=== PATIENT | female | born 1960 | race Caucasian/White ===

== ENCOUNTER 2021-06-24 21:26 | Emergency (ER) | payer BC, OTHER ==
[~2021-06-24] VITALS: Ht 160 cm; Wt 54.4 kg
--- NOTE | 2021-06-24 22:00 | NUR ---
PATIENT BIBS C/O SUDDEN SEVERE RIGHT FLANK PAIN X FEW HOURS. PATIENT ALERT AND ORIETNED X3. AMBULATORY BUT WAS BROUGHT IN BY WHEELCHAIR. PATIENT HAS NAUSEA AND VOMITTING. PATIENT HAS NON LABORED BREATHING, AND WAS PLACED ON BED 04 ON A MONITOR AND POX.
[2021-06-24] MEDS ORDERED: ONDANSETRON HCL/PF 4 MG/2 ML VIAL ONE ×3 (22:06→22:42)
[2021-06-24] MEDS ORDERED: KETOROLAC TROMETHAMINE INJ 30 MG/ML VIAL ONE (22:06)
[2021-06-24] MEDS ORDERED: HYDROMORPHONE 1 MG/1 ML DISP.SYRIN ONE (22:07)
[2021-06-24] MEDS ORDERED: KETOROLAC TROMETHAMINE INJ 30 MG/ML VIAL IV ONE (22:30)
[2021-06-24] MEDS ORDERED: ONDANSETRON HCL/PF 4 MG/2 ML VIAL IVP ONE (22:30)
[2021-06-24] MEDS ORDERED: IV NS 0.9% 1,000 ML BAG IV ONE (22:30)
[2021-06-24] MEDS ORDERED: HYDROMORPHONE INJ 2 MG/ML DISP.SYRIN IV ONE (22:30)
--- NOTE | 2021-06-24 22:34 | NUR ---
URINE SENT TO LAB
--- NOTE | 2021-06-24 22:34 | NUR ---
LAB AT BEDSIDE
[2021-06-24 22:50] LABS: BASOPHILS % (AUTO) 0.2 % (0.0-2.0); EOSINOPHILS % (AUTO) 0.4 % (0.0-6.0); HEMATOCRIT 42 % (33-45); HEMOGLOBIN 13.9 g/dL (11.5-14.8); LYMPHOCYTES # (AUTO) 2.1 K/uL (0.8-4.8); LYMPHOCYTES % (AUTO) 15.7 % (20.0-44.0); MEAN CORPUSCULAR HGB CONC 34 g/dl (31.0-36.0); MEAN CORPUSCULAR VOLUME 91 fL (82-100); MONOCYTES # (AUTO) 0.7 K/uL (0.1-1.30); MONOCYTES % (AUTO) 5.1 % (2.0-12.0); NEUTROPHILS # (AUTO) 10.6 K/uL (1.8-8.9); NEUTROPHILS % (AUTO) 78.6 % (43.0-81.0); PLATELET COUNT (AUTO) 227 K/uL (150-450); RED BLOOD CELL COUNT(AUTO) 4.55 MIL/uL (4.0-5.2); WHITE BLOOD COUNT (AUTO) 13.4 K/uL (4.3-11.0)
--- NOTE | 2021-06-24 22:51 | NUR ---
TATI TO RADIOLOGY
[2021-06-24 22:59] LABS: CALCIUM, SERUM 8.7 mg/dL (8.5-10.1); POTASSIUM 3.8 mmol/L (3.5-5.1)
[2021-06-24] MEDS ORDERED: ONDANSETRON HCL/PF - ER 4 MG/2 ML VIAL IV ONE (23:00)
[2021-06-24] MEDS ORDERED: MORPHINE SULFATE INJ 2 MG/ML DISP.SYRIN IV ONE (23:00)
[2021-06-24 23:13] LABS: BILIRUBIN,DIRECT 0.2 mg/dL (0.0-0.2); BILIRUBIN,TOTAL 0.5 mg/dL (0.2-1.0)
--- NOTE | 2021-06-24 23:17 | NUR ---
VERBAL ORDER 10MG REGLAN
[2021-06-24] MEDS ORDERED: MORPHINE SULFATE INJ 4 MG/ML DISP.SYRIN ONE (23:18)
[2021-06-24] MEDS ORDERED: METOCLOPRAMIDE HCL 10 MG/2 ML VIAL ONE (23:18)
--- NOTE | 2021-06-25 00:06 | NUR ---
called tamir to have images read
[2021-06-25] MEDS ORDERED: HYDROMORPHONE INJ 2 MG/ML DISP.SYRIN ONE (00:11)
[2021-06-25] MEDS ORDERED: KETOROLAC TROMETHAMINE INJ 30 MG/ML VIAL ONE (00:11)
[2021-06-25] MEDS ORDERED: ONDANSETRON HCL/PF 4 MG/2 ML VIAL ONE (00:21)
[2021-06-25] MEDS ORDERED: HYDROMORPHONE INJ 2 MG/ML DISP.SYRIN IV ONE (00:30)
[2021-06-25] MEDS ORDERED: ONDANSETRON HCL/PF - ER 4 MG/2 ML VIAL IV ONE (00:30)
[2021-06-25] MEDS ORDERED: KETOROLAC TROMETHAMINE INJ 30 MG/ML VIAL IV ONE (00:30)
[2021-06-25 00:39] LABS: BILIRUBIN,URINE Negative (NEGATIVE); COLOR,URINE YELLOW (YELLOW); LEUKOCYTE ESTERASE ,URINE Negative (NEGATIVE); NITRITE, URINE Negative (NEGATIVE); PH,URINE 8.5 (5.0-8.0); PROTEIN,URINE Negative (NEGATIVE); UGLUCOSE Negative (NEGATIVE); UROBILINOGEN,URINE 0.2 EU/dL (0.2)
--- NOTE | 2021-06-25 00:53 | NUR ---
CALLED [facility] TO HAVE IMAGES READ. PER PAPO, "VERY BUSY"
--- NOTE | 2021-06-25 01:19 | NUR ---
PT SLEEPING COMFORTABLY. ATTACHED TO MONITOR AND POX.
[2021-06-25 01:24] LABS: BACTERIA,URINE None seen /HPF (None Seen); MUCUS,URINE Few /LPF (None Seen); SQUAMOUS EPITHELIAL CELL,UR Few /HPF (None Seen); URINE AMORPHOUS PHOSPHATES Moderate /HPF (None Seen); WBC,URINE 0-2 /HPF (0-3)
[2021-06-25] MEDS ORDERED: HYDROCODONE/APAP 10/325MG TABLET PO ONE (01:30)
[2021-06-25] MEDS ORDERED: KETO10TA2 PO (01:31)
[2021-06-25] MEDS ORDERED: TAMS-12 PO (01:31)
[2021-06-25] MEDS ORDERED: HYDR-3980 PO (01:31)
[2021-06-25] MEDS ORDERED: HYDROCODONE/APAP 10/325MG TABLET ONE (01:38)
[2021-06-25] MEDS ORDERED: ONDA4TAB5 PO (01:41)
--- NOTE | 2021-06-25 01:43 | NUR ---
Patient discharged to home in stable condition. Written and verbal after care instructions given. Patient verbalizes understanding of instruction. IV removed. Catheter intact and site benign. Pressure and 4x4 applied to site. No bleeding noted. pT ambulatory with a steady gait
[2021-06-25 01:50] VITALS: BP 133/70
== END 2021-06-25 01:43 | disposition home or self-care (01) ==
LOC: ER 21:29
DX: N20.1 Calculus of ureter (principal); N23 Unspecified renal colic; R11.2 Nausea with vomiting, unspecified
CPT/HCPCS: 36415; 71045; 74176; 80048; 80076; 81001; 83690; 85025; 96361; 96374; 96375; 96376 ×2; 99285; J1170 ×2; J1885 ×2; J2270; J2405 ×6; J2765; J7030